=== PATIENT | male | born 1940 | race Caucasian/White ===

== ENCOUNTER 2017-02-19 09:18 | Emergency (ER) | payer OTHER ==
--- NOTE | 2017-02-19 11:22 | DIAGNOSTIC IMAGING REPORT ---
PROCEDURE: US VENOUS - LEFT EXT INDICATION: SWELLING TECHNIQUE: Duplex sonography of the deep venous system in the left lower extremity was performed. Compression and augmentation techniques were used. COMPARISON: None. FINDINGS: Each interrogated segment of deep vein from the common femoral vein into the calf veins demonstrates normal compressibility, augmentation and/or color Doppler flow without filling defect. In the posterior medial left calf there is a fluid collection that measures 3.8 x 12 cm. This may represent a liquefied hematoma. IMPRESSION: 1. No deep venous thrombosis in the left lower extremity.
--- NOTE | 2017-02-19 11:28 | ED NURSING NOTES ---
Clinical Report - Nurses [facility] [address] [place] [address] 02/19/2017 9:22 [id number] Triage time 09:34 Feb 19 2017. Acuity: LEVEL 4. Chief Complaint: LEFT LOWER EXTREMITY PAIN, SWELLING and REDNESS. No acute distress. KIEL COMA SCORE: [place] Coma Scale: 15- eyes open spontaneously (4); best verbal response- oriented x 4 (5); best motor response- obeys commands (6). BREATHALYZER: Breathalyzer. --09:39 Vicky Stroud R.N. 09:33 02/19/17. BP: 151/85. HR: 67. RR: 16. O2 saturation: 100%. Temp: 97.5 F. Pain level now: 11/22. --09:39 Vicky Stroud R.N. Triage time 09Feb 19 2017. Chief Complaint: LEFT LOWER EXTREMITY PAIN, SWELLING and REDNESS. --10:10 Vicky Stroud R.N. Weight: 99.7 kg stated. Height/Length: 72 inches Per Patient. BMI: 29.8. --09:51 Vicky Stroud R.N. Medications AmLODIPine Besylate Oral 5 mg, daily. --10:12 Vicky Stroud R.N. Aspirin Oral. --10:13 Vicky Stroud R.N. Allergies Percocet. --10:13 Vicky Stroud R.N. Mobic. --10:13 Vicky Stroud R.N. History <<STRICKEN ENTRY-- Arrived by private vehicle. Historian: patient. Accompanied by family and spouse. This occurred (about 2 weeks). Has had no swelling or redness. No fever, difficulty breathing or trouble walking. 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 PAST MEDICAL HX: Tetanus status: up-to-date. Immunizations: up-to-date. SOCIAL HX: Never smoker. No alcohol use or drug use. No infectious disease exposure. SELF HARM ASSESSMENT: A self harm assessment was performed. The patient was asked "Have you ever tried to hurt yourself before today?". ABUSE ASSESSMENT: Abuse assessment: The patient was asked "Do you feel safe in your home?". --09:39 Vicky Stroud R.N. --END STRIKE>> Correction --10:08 Vicky Stroud R.N. Arrived by private vehicle. Historian: patient. Injury occurred. Location of injuries: left leg. This occurred (about 2 weeks ago). ( PT STATES THAT HE TORE A MUSCLE). 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 --10:10 Vicky Stroud R.N. The patient has had trouble walking and weakness. PAST MEDICAL HX: Tetanus status: up-to-date. Immunizations: up-to-date. SOCIAL HX: Never smoker. No alcohol use or drug use. No infectious disease exposure. SELF HARM ASSESSMENT: A self harm assessment was performed. The patient answered "no" to the question "Do you have thoughts of harming or killing yourself?". FALL RISK ASSESSMENT: Fall risk assessment completed. No fall risk identified. NUTRITIONAL RISK ASSESSMENT: The nutritional risk assessment revealed no deficiencies. FUNCTIONAL ASSESSMENT: Functional assessment: no impairments noted. LEARNING NEEDS ASSESSMENT: The learning needs assessment revealed no barriers. ABUSE ASSESSMENT: Abuse assessment: The patient was asked "Do you feel safe in your home?". SKIN INTEGRITY ASSESSMENT: Skin integrity risk assessment completed. No skin integrity risk identified. --10:15 Vicky Stroud R.N. PROBLEMS: Knee, blocked intested. --09:37 Vicky Stroud R.N. ADDITIONAL SURGERIES: Blocked intestine. Knee Surgery. --10:14 Vicky Stroud R.N. Interventions To room. --09:39 Vicky Stroud R.N. PHYSICAL ASSESSMENT EXTREMITIES: Extremities exhibit normal ROM. Neuro-vascular status intact to the extremity. Left leg: tenderness, swelling and erythema. Limited weight bearing secondary to pain (Left lower leg). SKIN: Skin is warm and dry. --09:42 Vicky Stroud R.N. SKIN: Skin is dry. --09:53 Vicky Stroud R.N. NURSING PROGRESS NOTES Patient identifiers checked. Call light placed in reach. Side rails up x 1. Bed placed in lowest position. Brakes of bed on. Patient ready for evaluation- chart flagged. --09:53 Vicky Stroud R.N. 09:53 02/19/2017 Site #1 started via IV in the left forearm with an 20g angiocath, with aseptic technique and good blood return; one attempt. Blood drawn: rainbow set. Labeled in the presence of the patient and sent to the lab. Saline lock flushed with 10 mL saline. --09:53 Vicky Stroud R.N. DISPOSITION / DISCHARGE Departure time: 11:45 Feb 19 2017. Condition at departure: unchanged. No learning barriers present. Discharge instructions provided and reviewed with the patient. Reviewed medication(s) side effects, precautions, dosing and course information. Prescription(s) given to the patient. Reviewed referral to a primary care physician. Patient verbalized understanding. Written instructions provided in Greek. The patient was discharged home and accompanied by spouse. He left the Emergency Department ambulatory and via private vehicle. Spouse driving. FALL RISK ASSESSMENT: Fall risk assessment completed. No fall risk identified. --11:54 Vicky Stroud R.N. 11:53 02/19/17. BP: 125/78. HR: 65. RR: 16. O2 saturation: 96%. Pain level now: 10/22. --11:54 Vicky Stroud R.N. Locked/Released at 02/20/2017 13:25 by Vicky Stroud R.N.
--- NOTE | 2017-02-19 11:28 | ED ORDER SUMMARY ---
..... Patient: HAYLEY SKINNER OrderSheet [facility] VisitID: [id number] [address] [place] [address] 76y, M Registration Date/Time: 02/19/2017 ORDER SHEET Weight: 99.7 kg (stated) Allergies: Percocet, Mobic GENERAL ORDERS: US Venous Left Urgent (10:02 02/19/2017 Unique ROLLINS) (Ack 10:04 Ivana) CBC w Diff Urgent (10:02/19/2017 Unique ROLLINS) (Ack 10:04 Ivana) (10:15 KKnebel R.N.) PCT (Procalcitonin) Urgent (10:02 02/19/2017 Unique ROLLINS) (Ack 10:04 Ivana) (10:15 KKnebel R.N.) MEDICATION ORDERS: IV FLUIDS: IV Saline Lock (10:02/19/2017 Unique ROLLINS) (10:15 KKnebel R.N.) ORDER SHEET NOTES: [Electronically signed by Konrad Woodard MD (07:46 02/20/2017)] [Electronically signed by Vicky Stroud R.N. (13:25 02/20/2017)] [Electronically locked/signed by Vicky Stroud R.N. (13:25 02/20/2017)]
--- NOTE | 2017-02-19 11:28 | ED CLINICAL REPORT ---
Clinical Report - Physicians/Mid Levels [facility] [address] [place] [address] 02/19/2017 9:22 [id number] Time Seen: 09:57 Feb 19 2017. Arrived- By private vehicle. Historian- patient. CPT: ER phys charges level 4 (#[id number]). HISTORY OF PRESENT ILLNESS Chief Complaint: LOWER EXTREMITY PAIN and SWELLING and ; ;(LEFT LOWER EXTREMITY PAIN, SWELLING and REDNESS.). Severity is described as being moderate. It has become recently worse. The quality is noted to be sharp, aching and "pain". 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 Has a wound on the left leg that has a scab . Not sure how he got it.). Symptoms located in the area of the left leg and left ankle. The patient has had redness and swelling. He has had difficulty walking. No bladder dysfunction, bowel dysfunction, sensory loss or motor loss. Similar symptoms previously: None. Recent medical care: The patient was seen recently at another facility in the office ([facility] orthopedics. 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 Evaluation/treatment: sonogram- large hematoma associated with calf muscle tear. Diagnosis: (torn calf muscle). REVIEW OF SYSTEMS No cough, chest pain, difficulty breathing, fever or enlarged lymph nodes. No neck pain, back pain, abdominal pain, vomiting or diarrhea. He has had skin rash. All systems otherwise negative, except as recorded above. PAST HISTORY ( Left knee replacement. Bowel obsstruction with surgery.). Medications: Aspirin Oral. AmLODIPine Besylate Oral 5 mg, daily. Allergies: Mobic. Percocet. SOCIAL HISTORY Never smoker. No alcohol use or drug use. ADDITIONAL NOTES The nursing notes have been reviewed. PHYSICAL EXAM Vital Signs: 02/19/2017 09:33 BP: 151/85. HR: 67. RR: 16. O2 saturation: 100%. Temp: 97.5 F. Pain level now: 11/22. Appearance: Alert. Patient in mild distress. In distress. Eyes: Eyes normal inspection. ENT: Pharynx normal. Neck: Normal inspection. CVS: Normal heart rate and rhythm. Heart sounds normal. Respiratory: No respiratory distress. Breath sounds normal. Skin: Skin intact. Skin warm. Moderate, well-demarcated, erythematous, tender skin rash located on the left leg. Extremities: Left leg: moderate erythema, tenderness and swelling and medium sized ecchymosis located in the mid leg. Limited weight bearing secondary to pain. Neurovascular intact distally. No abrasion or deformity. LABS, X-RAYS, AND EKG Lower Extremity Sonography: Large calf hematoma, left side. No DVT. Study type: utilized power Doppler and color Doppler sonography. The exam was performed by a dealer support technician. The study was independently viewed by me and interpreted contemporaneously by me. Laboratory Tests: CBC w Diff: (JAGJIT: 02/19/2017 09:50) ( MsgRcvd 02/19/2017 10:17) Final results Test Result Flag Units (Reference) WHITE BLOOD COUNT 8.4 K/uL (4.5-11.5) RED BLOOD COUNT 4.70 M/uL (4.50-5.90) HEMOGLOBIN 14.2 gm/dL (13.5-17.5) HEMATOCRIT 41.8 % (41.0-53.0) MEAN CELL VOLUME 89 fL (80-100) MEAN CORPUSCULAR HGB 30 pg (26-34) MEAN CORPUSCULAR HGB CONC 34 g/dL (31-37) RED CELL DISTRIBUTION WIDTH 13.5 % (11.6-14.8) PLATELET COUNT 200 K/uL (150-400) NEUTROPHIL % 75.9 H % (50-75) LYMPH % 12.7 L % (25-40) MONO % 8.5 % (3-14) EOSINOPHIL % 2.4 % (0-4) BASOPHIL % 0.5 % (0-2) [id number]: (JAGJIT: 02/19/2017 09:50) ( MsgRcvd 02/19/2017 10:48) Final results Test Result Flag Units (Reference) PROCALCITONIN <0.5 ng/mL (0-0.5) PCT Concentration: Interpretation : Risk/option for action PCT <=0.5 ng/mL : Systemic : Low risk forinfection(sepsis): progression to severeis not likely. : systemic infection.Local bacterial : CAUTION-PCT levelsinfection is : below 0.5 ng/mL do notpossible. : exclude an infection,because localizedinfections (withoutsystemic signs) may beassociated with suchlow levels. If PCT ismeasured very earlyafter a bacterialchallenge (usually <6hours), these valuesmay still be low. Inthis case PCT shouldbe re-assessed 6-24hours later. PCT >0.5 and : Systemic infection: Moderate risk for<= 2 ng/mL : (sepsis) is : progression to severepossible, but : systemic infection.other conditions : The patient should beare known to : closely monitoredelevate PCT. : both clinically andby re-assessing PCTwithin 6-24 hours. PCT > 2 ng/mL : Systemic infection: High risk for(sepsis) is likely: progression to severeunless other : systemic infection.causes are known. : PCT >= 10 ng/mL : Important systemic: High likelihood ofinflammatory : severe sepsis orresponse, almost : septic shock.exclusively due to:severe bacterial :sepsis or septic :shock. : . PROGRESS AND PROCEDURES Course of Care: Pt with large hematoma over area of recent injury with ecchymosis due to resolution. There is no DVT or compartment syndrome. Pt has wound on the lateral calf with surrounding erythema involving most of the calf consistent with cellulitis. Some of the erythema is from local swelling. Will start antibiotics and have him follow up with ortho in 2 days to re-evaluate the hematoma and any change. Patient/family counseled. Disposition: Discharged. Condition: stable. CLINICAL IMPRESSION Gstrocnemius tear with large hematoma , left leg. Acute cellulitis , left leg. INSTRUCTIONS Elevate affected areas above chest level for two days until better. Apply moist heat for 15-20 minutes three times a day for five days until better. No strenuous activity. (Ask your Doctor about taking aspirin as it can cause more bleeding.). Warnings: Further evaluation is necessary. GENERAL WARNINGS: Return or contact your physician immediately if your condition worsens or changes unexpectedly, if not improving as expected, or if other problems arise. Your Current Medications: CONTINUE TAKING THE FOLLOWING MEDICATIONS: AmLODIPine Besylate Oral : 5 mg daily. Aspirin Oral. Prescription Medications: Cephalexin 500mg: take 1 tab orally every 6 hours for 7 days. No refills Trimethoprim-Sulfamethoxazole DS: take 1 tablet orally every 12 hours for 7 days. Dispense fourteen (14). No refills. OTC Medications: Acetaminophen (available over the counter): take according to label instructions. Follow-up: Follow up with an orthopedic surgeon in two days. Call for the next available appointment. Understanding of the discharge instructions verbalized by patient and family. Discharge instructions reviewed with and understanding was verbalized by spouse. (Electronically signed by Konrad Woodard MD 02/20/2017 7:46)
--- NOTE | 2017-02-19 11:28 | ED CLINICAL REPORT ---
Clinical Report - Physicians/Mid Levels [facility] [address] [place] [address] 02/19/2017 9:22 [id number] Time Seen: 09:57 Feb 19 2017. Arrived- By private vehicle. Historian- patient. CPT: ER phys charges level 4 (#[id number]). HISTORY OF PRESENT ILLNESS Chief Complaint: LOWER EXTREMITY PAIN and SWELLING and ; ;(LEFT LOWER EXTREMITY PAIN, SWELLING and REDNESS.). Severity is described as being moderate. It has become recently worse. The quality is noted to be sharp, aching and "pain". 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 Has a wound on the left leg that has a scab . Not sure how he got it.). Symptoms located in the area of the left leg and left ankle. The patient has had redness and swelling. He has had difficulty walking. No bladder dysfunction, bowel dysfunction, sensory loss or motor loss. Similar symptoms previously: None. Recent medical care: The patient was seen recently at another facility in the office ([facility] orthoped[facility]. 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 Evaluation/treatment: sonogram- large hematoma associated with calf muscle tear. Diagnosis: (torn calf muscle). REVIEW OF SYSTEMS No cough, chest pain, difficulty breathing, fever or enlarged lymph nodes. No neck pain, back pain, abdominal pain, vomiting or diarrhea. He has had skin rash. All systems otherwise negative, except as recorded above. PAST HISTORY ( Left knee replacement. Bowel obsstruction with surgery.). Medications: Aspirin Oral. AmLODIPine Besylate Oral 5 mg, daily. Allergies: Mobic. Percocet. SOCIAL HISTORY Never smoker. No alcohol use or drug use. ADDITIONAL NOTES The nursing notes have been reviewed. PHYSICAL EXAM Vital Signs: 02/19/2017 09:33 BP: 151/85. HR: 67. RR: 16. O2 saturation: 100%. Temp: 97.5 F. Pain level now: 11/22. Appearance: Alert. Patient in mild distress. In distress. Eyes: Eyes normal inspection. ENT: Pharynx normal. Neck: Normal inspection. CVS: Normal heart rate and rhythm. Heart sounds normal. Respiratory: No respiratory distress. Breath sounds normal. Skin: Skin intact. Skin warm. Moderate, well-demarcated, erythematous, tender skin rash located on the left leg. Extremities: Left leg: moderate erythema, tenderness and swelling and medium sized ecchymosis located in the mid leg. Limited weight bearing secondary to pain. Neurovascular intact distally. No abrasion or deformity. LABS, X-RAYS, AND EKG Lower Extremity Sonography: Large calf hematoma, left side. No DVT. Study type: utilized power Doppler and color Doppler sonography. The exam was performed by a ip/mosaic technician. The study was independently viewed by me and interpreted contemporaneously by me. Laboratory Tests: CBC w Diff: (JAGJIT: 02/19/2017 09:50) ( MsgRcvd 02/19/2017 10:17) Final results Test Result Flag Units (Reference) WHITE BLOOD COUNT 8.4 K/uL (4.5-11.5) RED BLOOD COUNT 4.70 M/uL (4.50-5.90) HEMOGLOBIN 14.2 gm/dL (13.5-17.5) HEMATOCRIT 41.8 % (41.0-53.0) MEAN CELL VOLUME 89 fL (80-100) MEAN CORPUSCULAR HGB 30 pg (26-34) MEAN CORPUSCULAR HGB CONC 34 g/dL (31-37) RED CELL DISTRIBUTION WIDTH 13.5 % (11.6-14.8) PLATELET COUNT 200 K/uL (150-400) NEUTROPHIL % 75.9 H % (50-75) LYMPH % 12.7 L % (25-40) MONO % 8.5 % (3-14) EOSINOPHIL % 2.4 % (0-4) BASOPHIL % 0.5 % (0-2) [id number]: (JAGJIT: 02/19/2017 09:50) ( MsgRcvd 02/19/2017 10:48) Final results Test Result Flag Units (Reference) PROCALCITONIN <0.5 ng/mL (0-0.5) PCT Concentration: Interpretation : Risk/option for action PCT <=0.5 ng/mL : Systemic : Low risk forinfection(sepsis): progression to severeis not likely. : systemic infection.Local bacterial : CAUTION-PCT levelsinfection is : below 0.5 ng/mL do notpossible. : exclude an infection,because localizedinfections (withoutsystemic signs) may beassociated with suchlow levels. If PCT ismeasured very earlyafter a bacterialchallenge (usually <6hours), these valuesmay still be low. Inthis case PCT shouldbe re-assessed 6-24hours later. PCT >0.5 and : Systemic infection: Moderate risk for<= 2 ng/mL : (sepsis) is : progression to severepossible, but : systemic infection.other conditions : The patient should beare known to : closely monitoredelevate PCT. : both clinically andby re-assessing PCTwithin 6-24 hours. PCT > 2 ng/mL : Systemic infection: High risk for(sepsis) is likely: progression to severeunless other : systemic infection.causes are known. : PCT >= 10 ng/mL : Important systemic: High likelihood ofinflammatory : severe sepsis orresponse, almost : septic shock.exclusively due to:severe bacterial :sepsis or septic :shock. : . PROGRESS AND PROCEDURES Course of Care: Pt with large hematoma over area of recent injury with ecchymosis due to resolution. There is no DVT or compartment syndrome. Pt has wound on the lateral calf with surrounding erythema involving most of the calf consistent with cellulitis. Some of the erythema is from local swelling. Will start antibiotics and have him follow up with ortho in 2 days to re-evaluate the hematoma and any change. Patient/family counseled. Disposition: Discharged. Condition: stable. CLINICAL IMPRESSION Gstrocnemius tear with large hematoma , left leg. Acute cellulitis , left leg. INSTRUCTIONS Elevate affected areas above chest level for two days until better. Apply moist heat for 15-20 minutes three times a day for five days until better. No strenuous activity. (Ask your Doctor about taking aspirin as it can cause more bleeding.). Warnings: Further evaluation is necessary. GENERAL WARNINGS: Return or contact your physician immediately if your condition worsens or changes unexpectedly, if not improving as expected, or if other problems arise. Your Current Medications: CONTINUE TAKING THE FOLLOWING MEDICATIONS: AmLODIPine Besylate Oral : 5 mg daily. Aspirin Oral. Prescription Medications: Cephalexin 500mg: take 1 tab orally every 6 hours for 7 days. No refills Trimethoprim-Sulfamethoxazole DS: take 1 tablet orally every 12 hours for 7 days. Dispense fourteen (14). No refills. OTC Medications: Acetaminophen (available over the counter): take according to label instructions. Follow-up: Follow up with an orthopedic surgeon in two days. Call for the next available appointment. Understanding of the discharge instructions verbalized by patient and family. Discharge instructions reviewed with and understanding was verbalized by spouse. (Electronically signed by Konrad Woodard MD 02/20/2017 7:46)
--- NOTE | 2017-02-19 11:28 | ED ORDER SUMMARY ---
..... Patient: HAYLEY SKINNER OrderSheet [facility] VisitID: [id number] [address] [place] [address] 76y, M Registration Date/Time: 02/19/2017 ORDER SHEET Weight: 99.7 kg (stated) Allergies: Percocet, Mobic GENERAL ORDERS: US Venous Left Urgent (10:02 02/19/2017 Unique ROLLINS) (Ack 10:04 Ivana) CBC w Diff Urgent (10:02/19/2017 Unique ROLLINS) (Ack 10:04 Ivana) (10:15 KKnebel R.N.) PCT (Procalcitonin) Urgent (10:02 02/19/2017 Unique ROLLINS) (Ack 10:04 Ivana) (10:15 KKnebel R.N.) MEDICATION ORDERS: IV FLUIDS: IV Saline Lock (10:02/19/2017 Unique ROLLINS) (10:15 KKnebel R.N.) ORDER SHEET NOTES: [Electronically signed by Konrad Woodard MD (07:46 02/20/2017)] [Electronically signed by Vicky Storud R.N. (13:25 02/20/2017)] [Electronically locked/signed by Vicky Stroud R.N. (13:25 02/20/2017)]
--- NOTE | 2017-02-19 11:28 | ED NURSING NOTES ---
Clinical Report - Nurses [facility] [address] [place] [address] 02/19/2017 9:22 [id number] Triage time 09:34 Feb 19 2017. Acuity: LEVEL 4. Chief Complaint: LEFT LOWER EXTREMITY PAIN, SWELLING and REDNESS. No acute distress. KIEL COMA SCORE: [place] Coma Scale: 15- eyes open spontaneously (4); best verbal response- oriented x 4 (5); best motor response- obeys commands (6). BREATHALYZER: Breathalyzer. --09:39 Vicky Stroud R.N. 09:33 02/19/17. BP: 151/85. HR: 67. RR: 16. O2 saturation: 100%. Temp: 97.5 F. Pain level now: 11/22. --09:39 Vicky Stroud R.N. Triage time 09Feb 19 2017. Chief Complaint: LEFT LOWER EXTREMITY PAIN, SWELLING and REDNESS. --10:10 Vicky Stroud R.N. Weight: 99.7 kg stated. Height/Length: 72 inches Per Patient. BMI: 29.8. --09:51 Vicky Stroud R.N. Medications AmLODIPine Besylate Oral 5 mg, daily. --10:12 Vicky Stroud R.N. Aspirin Oral. --10:13 Vicky Stroud R.N. Allergies Percocet. --10:13 Vicky Stroud R.N. Mobic. --10:13 Vicky Stroud R.N. History <<STRICKEN ENTRY-- Arrived by private vehicle. Historian: patient. Accompanied by family and spouse. This occurred (about 2 weeks). Has had no swelling or redness. No fever, difficulty breathing or trouble walking. 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 PAST MEDICAL HX: Tetanus status: up-to-date. Immunizations: up-to-date. SOCIAL HX: Never smoker. No alcohol use or drug use. No infectious disease exposure. SELF HARM ASSESSMENT: A self harm assessment was performed. The patient was asked "Have you ever tried to hurt yourself before today?". ABUSE ASSESSMENT: Abuse assessment: The patient was asked "Do you feel safe in your home?". --09:39 Vicky Stroud R.N. --END STRIKE>> Correction --10:08 Vicky Stroud R.N. Arrived by private vehicle. Historian: patient. Injury occurred. Location of injuries: left leg. This occurred (about 2 weeks ago). ( PT STATES THAT HE TORE A MUSCLE). Treatment CASINO FLOOR WALKER: None. --10:10 Vicky Stroud R.N. The patient has had trouble walking and weakness. PAST MEDICAL HX: Tetanus status: up-to-date. Immunizations: up-to-date. SOCIAL HX: Never smoker. No alcohol use or drug use. No infectious disease exposure. SELF HARM ASSESSMENT: A self harm assessment was performed. The patient answered "no" to the question "Do you have thoughts of harming or killing yourself?". FALL RISK ASSESSMENT: Fall risk assessment completed. No fall risk identified. NUTRITIONAL RISK ASSESSMENT: The nutritional risk assessment revealed no deficiencies. FUNCTIONAL ASSESSMENT: Functional assessment: no impairments noted. LEARNING NEEDS ASSESSMENT: The learning needs assessment revealed no barriers. ABUSE ASSESSMENT: Abuse assessment: The patient was asked "Do you feel safe in your home?". SKIN INTEGRITY ASSESSMENT: Skin integrity risk assessment completed. No skin integrity risk identified. --10:15 Vicky Stroud R.N. PROBLEMS: Knee, blocked intested. --09:37 Vicky Stroud R.N. ADDITIONAL SURGERIES: Blocked intestine. Knee Surgery. --10:14 Vicky Stroud R.N. Interventions To room. --09:39 Vicky Stroud R.N. PHYSICAL ASSESSMENT EXTREMITIES: Extremities exhibit normal ROM. Neuro-vascular status intact to the extremity. Left leg: tenderness, swelling and erythema. Limited weight bearing secondary to pain (Left lower leg). SKIN: Skin is warm and dry. --09:42 Vicky Stroud R.N. SKIN: Skin is dry. --09:53 Vicky Stroud R.N. NURSING PROGRESS NOTES Patient identifiers checked. Call light placed in reach. Side rails up x 1. Bed placed in lowest position. Brakes of bed on. Patient ready for evaluation- chart flagged. --09:53 Vicky Stroud R.N. 09:53 02/19/2017 Site #1 started via IV in the left forearm with an 20g angiocath, with aseptic technique and good blood return; one attempt. Blood drawn: rainbow set. Labeled in the presence of the patient and sent to the lab. Saline lock flushed with 10 mL saline. --09:53 Vicky Stroud R.N. DISPOSITION / DISCHARGE Departure time: 11:45 Feb 19 2017. Condition at departure: unchanged. No learning barriers present. Discharge instructions provided and reviewed with the patient. Reviewed medication(s) side effects, precautions, dosing and course information. Prescription(s) given to the patient. Reviewed referral to a primary care physician. Patient verbalized understanding. Written instructions provided in Greek. The patient was discharged home and accompanied by spouse. He left the Emergency Department ambulatory and via private vehicle. Spouse driving. FALL RISK ASSESSMENT: Fall risk assessment completed. No fall risk identified. --11:54 Vicky Stroud R.N. 11:53 02/19/17. BP: 125/78. HR: 65. RR: 16. O2 saturation: 96%. Pain level now: 10/22. --11:54 Vicky Stroud R.N. Locked/Released at 02/20/2017 13:25 by Vicky Stroud R.N.
--- NOTE | 2017-04-14 14:16 | ED DISCHARGE INSTRUCTIONS ---
Patient: HAYLEY SKINNER General Instructions [facility] VisitID: [id number] [place] [address] 76y, M Registration Date/Time: 02/19/2017 Gstrocnemius tear with large hematoma , left leg. Acute cellulitis , left leg. INSTRUCTIONS Elevate affected areas above chest level for two days until better. Apply moist heat for 15-20 minutes three times a day for five days until better. No strenuous activity. (Ask your Doctor about taking aspirin as it can cause more bleeding.). Warnings: Further evaluation is necessary. GENERAL WARNINGS: Return or contact your physician immediately if your condition worsens or changes unexpectedly, if not improving as expected, or if other problems arise. Your Current Medications: CONTINUE TAKING THE FOLLOWING MEDICATIONS: AmLODIPine Besylate Oral : 5 mg daily. Aspirin Oral. Prescription Medications: Cephalexin 500mg: take 1 tab orally every 6 hours for 7 days. No refills Trimethoprim-Sulfamethoxazole DS: take 1 tablet orally every 12 hours for 7 days. Dispense fourteen (14). No refills. OTC Medications: Acetaminophen (available over the counter): take according to label instructions. Follow-up: Follow up with an orthopedic surgeon in two days. Call for the next available appointment. Understanding of the discharge instructions verbalized by patient and family. Discharge instructions reviewed with and understanding was verbalized by spouse. No strenuous activity. (Electronically signed by Konrad Woodard MD 02/20/2017 7:46)
--- NOTE | 2017-04-14 14:16 | ED MAR SUMMARY ---
..... Medication Administration Record [facility] [address], [place] [id number] Patient: HAYLEY SKINNER Visit ID: [id number] 76y, M Weight: 99.7 kg Height/Length: 72 in BMI: 29.8 ALLERGIES: Mobic, Percocet
--- NOTE | 2017-04-14 14:16 | ED DISCHARGE INSTRUCTIONS ---
Patient: HAYLEY SKINNER General Instructions [facility] VisitID: [id number] [place] [address] 76y, M Registration Date/Time: 02/19/2017 Gstrocnemius tear with large hematoma , left leg. Acute cellulitis , left leg. INSTRUCTIONS Elevate affected areas above chest level for two days until better. Apply moist heat for 15-20 minutes three times a day for five days until better. No strenuous activity. (Ask your Doctor about taking aspirin as it can cause more bleeding.). Warnings: Further evaluation is necessary. GENERAL WARNINGS: Return or contact your physician immediately if your condition worsens or changes unexpectedly, if not improving as expected, or if other problems arise. Your Current Medications: CONTINUE TAKING THE FOLLOWING MEDICATIONS: AmLODIPine Besylate Oral : 5 mg daily. Aspirin Oral. Prescription Medications: Cephalexin 500mg: take 1 tab orally every 6 hours for 7 days. No refills Trimethoprim-Sulfamethoxazole DS: take 1 tablet orally every 12 hours for 7 days. Dispense fourteen (14). No refills. OTC Medications: Acetaminophen (available over the counter): take according to label instructions. Follow-up: Follow up with an orthopedic surgeon in two days. Call for the next available appointment. Understanding of the discharge instructions verbalized by patient and family. Discharge instructions reviewed with and understanding was verbalized by spouse. No strenuous activity. (Electronically signed by Konrad Woodard MD 02/20/2017 7:46)
--- NOTE | 2017-04-14 14:16 | ED MAR SUMMARY ---
..... Medication Administration Record [facility] [address] [place], [place] [id number] Patient: HAYLEY SKINNER Visit ID: [id number] 76y, M Weight: 99.7 kg Height/Length: 72 in BMI: 29.8 ALLERGIES: Mobic, Percocet
--- NOTE | 2017-04-14 14:17 | ED MED RECONCILIATION SUMMARY ---
Patient: HAYLEY SKINNER Medication Reconciliation Report [facility] VisitID: [id number] [address] [place] [address] 76y, M Registration Date/Time: 02/19/2017 Weight: 99.7 kg Height/Length: 72 in. BMI: 29.8 ALLERGIES: Mobic, Percocet The patient's Home Medications are listed below: CONTINUE TAKING THE FOLLOWING MEDICATIONS: AmLODIPine Besylate Oral 5 mg, daily Aspirin Oral The source(s) of the original Home Medication information: Not obtained. The following Medications were given to the patient in the Emergency Department: None. The following Medications were prescribed to the patient: Acetaminophen (available over the counter): take according to label instructions. -- Konrad Woodard MD Cephalexin 500mg: take 1 tab orally every 6 hours for 7 days. No refills -- Konrad Woodard MD Trimethoprim-Sulfamethoxazole DS: take 1 tablet orally every 12 hours for 7 days. Dispense fourteen (14). No refills. -- Knorad Woodard MD
--- NOTE | 2017-04-14 14:17 | ED MED RECONCILIATION SUMMARY ---
Patient: HAYLEY SKINNER Medication Reconciliation Report [facility] VisitID: [id number] [address] [place] [address] 76y, M Registration Date/Time: 02/19/2017 Weight: 99.7 kg Height/Length: 72 in. BMI: 29.8 ALLERGIES: Mobic, Percocet The patient's Home Medications are listed below: CONTINUE TAKING THE FOLLOWING MEDICATIONS: AmLODIPine Besylate Oral 5 mg, daily Aspirin Oral The source(s) of the original Home Medication information: Not obtained. The following Medications were given to the patient in the Emergency Department: None. The following Medications were prescribed to the patient: Acetaminophen (available over the counter): take according to label instructions. -- Konrad Woodard MD Cephalexin 500mg: take 1 tab orally every 6 hours for 7 days. No refills -- Konrad Woodard MD Trimethoprim-Sulfamethoxazole DS: take 1 tablet orally every 12 hours for 7 days. Dispense fourteen (14). No refills. -- Konrad Woodard MD
== END 2017-02-19 11:45 | disposition home or self-care (01) ==
LOC: ED SRH 09:18
DX: S86.112A Strain of other muscle(s) and tendon(s) of posterior muscle group at lower leg level, left leg, initial encounter (principal); L03.116 Cellulitis of left lower limb; S80.12XA Contusion of left lower leg, initial encounter; X58.XXXA Exposure to other specified factors, initial encounter; Y93.9 Activity, unspecified; Y92.9 Unspecified place or not applicable; Y99.9 Unspecified external cause status; Z88.5 Allergy status to narcotic agent; Z79.82 Long term (current) use of aspirin; Z79.899 Other long term (current) drug therapy